=== PATIENT | male | born 1965 | race Hispanic/Latino ===

== ENCOUNTER → 2018-05-01 | Outpatient (CLI) | payer OTHER ==
[~2018-05-01] MED LIST: ALBUMIN (HUMAN) 25% 400 ML IV SCH; BUME1TAB17 PO; CALC0.253 PO; FERR325T22 PO; FOLI1TAB15 PO; FURO40TA7 PO; LACT10SO PO; LIDOCAINE HCL MPF 1% 5ML VIAL INJ ONE; LIDOCAINE HCL MPF 1% 5ML VIAL ONE; LISI-617 PO; POTA-9 PO; PROM25 PO; PROP10TA10 PO; RIFA550T PO; SPIR50TA5 PO
[2018-05-01 13:35] LABS: APPEARANCE BODY FLUID CLEAR (CLEAR); COLOR,BODY FLUID YELLOW (LT YELLOW); SPECIMENTYPE,BODY FLUID ASCITES
[2018-05-01 13:36] LABS: BODY FLUID RBC 147 /cu. mm.; BODY FLUID WBC 78 /cu. mm.; TOTAL VOLUME,BODY FLUID 6200 mL
[2018-05-01 13:57] LABS: BF LYMPHOCYTE 29 %; BF MESOTHELIAL 56 %; BF MONOCYTE 14 %
== END | disposition home or self-care (01) ==
LOC: MERGE 10:19 → RAH 10:19
PROVIDERS: ATTEND Internal Medicine Pulmonary Disease
DX: R18.8 Other ascites (principal); K74.60 Unspecified cirrhosis of liver; K76.6 Portal hypertension; N18.9 Chronic kidney disease, unspecified
CPT/HCPCS: 49083; 87071; 87205; 89051; J3490; P9046